=== PATIENT | male | born 1945 | race Hispanic/Latino ===

== ENCOUNTER 2016-10-27 19:38 | Inpatient (IN) | payer MEDICARE, BC ==
[2016-10-27 19:39] VITALS: PULSE 76
[2016-10-27] MEDS ORDERED: Sodium Chloride 0.9% 1,000 ML IV STA (20:18)
--- NOTE | 2016-10-27 20:19 | ED PDOC ---
Arrival/HPI - General Chief Complaint: Fever Time Seen by Provider: 10/27/16 20:07 - History of Present Illness Narrative History of Present Illness (Text): 10/27/16 20:16 71 yo male hx of kidney stones, htn, dm, presents with weakness, and increased confusion .as per son at bedside, noted symptoms x 3 days. pt reports was "on antibiotics for infection". pt states mild cough, no abdomianl pain, n/v/d, urinary changes, fernandez. pt oriented x 3 answering questions appropriately at bedside 10/27/16 20:17 10/27/16 20:33 Past Medical History - Provider Review Nursing Documentation Reviewed: Yes - Tetanus Immunization Tetanus Immunization: Unknown - Cardiac Hx Hypertension: Yes - Pulmonary Hx Respiratory Disorders: No Hx Asthma: No Hx Bronchitis: No Hx Chronic Obstructive Pulmonary Disease (COPD): No Hx Emphysema: No Hx Pneumonia: No Hx Respiratory Aspiration: No Hx Respiratory Tract Infection: No Hx Sleep Apnea: No Hx Tuberculosis: No Other/Comment: INTUBATION - Neurological Hx Neurological Disorder: Yes (Acute Altered Mental Status) Other/Comment: AMS - HEENT Hx HEENT Disorder: No - Renal Hx Renal Disorder: No - Endocrine/Metabolic Hx Diabetes Mellitus Type 2: Yes - Hematological/Oncological Hx Blood Disorders: No - Integumentary Hx Dermatological Disorder: No - Musculoskeletal/Rheumatological Hx Falls: Yes - Gastrointestinal Hx Gastrointestinal Disorders: No - Genitourinary/Gynecological Hx Genitourinary Disorders: Yes (URINARY RETENTION,) Hx Reproductive Disorders: No - Psychiatric Hx Anxiety: Yes Hx Substance Use: No - Past Surgical History Past Surgical History: Unable to Obtain - Surgical History Hx Cardiac Catheterization: No Hx Coronary Stent: No Other/Comment: I and D of abscesses - Anesthesia Hx Anesthesia: Yes - Suicidal Assessment Feels Threatened In Home Enviroment: No Family/Social History - Physician Review Nursing Documentation Reviewed: Yes Family/Social History: Unknown Family HX Smoking Status: Current Some Days Smoker Hx Alcohol Use: No Hx Substance Use: No Hx Substance Use Treatment: No Allergies/Home Meds Allergies/Adverse Reactions: Allergies Penicillins Allergy (Verified 10/27/16 19:43) RASH Home Medications: Home Meds Medication Instructions Recorded Confirmed Metformin Hydrochloride [Metformin] 500 mg PO BID 04/09/13 10/27/16 Amlodipine Besylate [Norvasc] 10 mg PO DAILY 06/29/13 10/27/16 Glimepiride [Glimepiride] 4 mg PO AC 06/29/13 10/27/16 Review of Systems - Review of Systems Constitutional: Normal Eyes: Normal ENT: Normal Respiratory: Normal Cardiovascular: Normal Gastrointestinal: Normal Genitourinary Male: Normal Musculoskeletal: Normal Skin: Normal Neurological: Normal Endocrine: Normal Hemo/Lymphatic: Normal Psychiatric: Normal Physical Exam Vital Signs Temp Pulse Resp BP Pulse Ox 10/27/16 20:26 102.1 F H 10/27/16 19:45 99.4 F 112 H 20 113/55 L 93 L Temperature: Afebrile Blood Pressure: Normal Pulse: Tachycardic Respiratory Rate: Normal Appearance: Positive for: Well-Appearing, Non-Toxic, Comfortable Pain Distress: None Mental Status: Positive for: Alert and Oriented X 3 Finger Stick Blood Glucose: 291 - Systems Exam Head: Present: Atraumatic, Normocephalic Pupils: Present: PERRL Extroacular Muscles: Present: EOMI Conjunctiva: Present: Normal Mouth: Present: Moist Mucous Membranes Neck: Present: Normal Range of Motion Respiratory/Chest: Present: Clear to Auscultation, Good Air Exchange. No: Respiratory Distress, Accessory Muscle Use Cardiovascular: Present: Regular Rate and Rhythm, Normal S1, S2. No: Murmurs Abdomen: Present: Distention (mild), Normal Bowel Sounds, Other. No: Tenderness , Peritoneal Signs Back: Present: Normal Inspection Upper Extremity: Present: Normal Inspection. No: Cyanosis, Edema Lower Extremity: Present: Normal Inspection. No: Edema Neurological: Present: GCS=15, CN II-XII Intact, Speech Normal, Motor Func Grossly Intact, Normal Sensory Function, Normal Cerebellar Funct Skin: Present: Warm, Dry, Normal Color. No: Rashes Psychiatric: Present: Alert, Oriented x 3, Normal Insight, Normal Concentration Medical Decision Making ED Course and Treatment: 10/27/16 20:19 suspect sepsis, r/o intracranial etiology- labs imaging pending. ekg nsr [address] t wave changes normal intervals. 10/27/16 20:31 cxr right sided infiltrate as read by me 10/27/16 20:49 code sepsis activated as la 2.2. pt hemodynciamlly stable, does not need 30 cc/ kg bolus 10/27/16 23:01 IMPRESSION: Unremarkable head/brain CT. 10/27/16 23:08 IMPRESSION: Findings consistent with extensive lobar pneumonia of the right middle lobe with mild involvement of the adjacent segments as well. Multiple renal cysts combination of both simple and complex. These are difficult to delineate without contrast. Multiple nonobstructing stones, no hydronephrosis. Fat-containing periumbilical hernia as described. Constipation without signs of bowel obstruction. - Lab Interpretations Lab Results: 10/27/16 20:12 10/27/16 20:12 Lab Results 10/27/16 22:10: Influenza Typ A,B (EIA) Negative for flu a/b 10/27/16 21:43: Urine Color Light red, Urine Appearance Slight-cloudy, Urine pH 5.5, Ur Specific [place] >= 1.030, Urine Protein 100 H, Urine Glucose (UA) Negative, Urine Ketones 15 H, Urine Blood Large H, Urine Nitrate Negative, Urine Bilirubin Small H, Urine Urobilinogen 1.0 H, Ur Leukocyte Esterase Moderate H, Urine RBC Tntc, Urine WBC 25 - 30, Ur Epithelial Cells 4 - 5, Amorphous Sediment Moderate, Urine Bacteria Many, Urine Other Uyeast 10/27/16 20:12: Sodium 136, Chloride 102, Potassium 4.4, Carbon Dioxide 25, Anion Gap 13, BUN 26 H, Creatinine 1.5 H, Est GFR ( Amer) 56, Est GFR ( Non-Af Amer) 46, Random Glucose 300 H, Calcium 8.9, Magnesium 1.7, Total Bilirubin 1.5 H, AST 25, ALT 26, Alkaline Phosphatase 98, Lactate Dehydrogenase 411, Total Creatine Kinase 207, Troponin I < 0.01 D, Total Protein 6.6, Albumin 3.7, Globulin 3.0, Albumin/Globulin Ratio 1.2, Lipase 26 10/27/16 20:12: PT 13.2 H, INR 1.22 H, APTT 34.8 H 10/27/16 20:12: WBC 32.4 H*, RBC 4.13, Hgb 13.2 L, Hct 37.9 L, MCV 91.8, MCH 32.0, MCHC 34.8, RDW 13.7, Plt Count 135, MPV 13.2 H, Neutrophils % (Manual) 86 H, Band Neutrophils % 5 H, Lymphocytes % (Manual) 5 L, Monocytes % (Manual) 4, Platelet Evaluation Normal, Anisocytosis (manual) Slight 10/27/16 20:12: pO2 40, VBG pH 7.35, VBG pCO2 44.0, VBG HCO3 24.3, VBG Total CO2 25.7, VBG O2 Sat (Calc) 79.1 H, VBG Base Excess -1.5 L, VBG Potassium 4.4, Sodium 136.0, Chloride 102.0, Glucose 324 H, Lactate 2.2 H, FiO2 21.0, Venous Blood Potassium 4.4 - RAD Interpretation Radiology Orders: 10/27/16 20:11 CHEST PORTABLE [RAD] Stat 10/27/16 20:16 ABD & PELVIS W/O PO OR IV CONT [CT] Stat 10/27/16 20:17 HEAD W/O CONTRAST [CT] Stat 10/27/16 22:45 CHEST W/O CONTRAST [CT] Stat - Medication Orders Current Medication Orders: Acetaminophen (Tylenol 325mg Tab) 650 mg PO Q6H PRN PRN Reason: Fever >100.4 F Albuterol/Ipratropium (Duoneb 3 Mg/0.5 Mg (3 Ml) Ud) 3 ml IH Q2H PRN PRN Reason: Shortness of Breath Albuterol/Ipratropium (Duoneb 3 Mg/0.5 Mg (3 Ml) Ud) 3 ml IH [id number] [facility] Amlodipine Besylate (Norvasc) 10 mg PO DAILY [facility] Aspirin (Aspirin Chewable) 81 mg PO DAILY [facility] Doxycycline Hyclate 100 mg/ (Sodium Chloride) 100 mls @ 100 mls/hr IVPB Q12 [facility] PRN Reason: Protocol Sodium Chloride (Sodium Chloride 0.45%) 1,000 mls @ 100 mls/hr IV .Q10H [facility] Aztreonam (Azactam 1 Gm) 100 mls @ 100 mls/hr IVPB Q8 [facility] PRN Reason: Protocol Stop: 10/28/16 06:59 Insulin Human Regular (Humulin R High) 0 units SC ACHS [facility] PRN Reason: Protocol Ondansetron HCl (Zofran Inj) 4 mg IVP Q6H PRN PRN Reason: Nausea/Vomiting Oseltamivir Phosphate (Tamiflu Cap) 75 mg PO BID [facility] PRN Reason: Protocol Stop: 11/01/16 22:33 Pantoprazole Sodium (Protonix Ec Tab) 40 mg PO 0630 [facility] Discontinued Medications Acetaminophen (Tylenol 325mg Tab) 975 mg PO STAT STA Stop: 10/27/16 20:30 Last Admin: 10/27/16 20:48 Dose: 975 mg Sodium Chloride (Sodium Chloride 0.9%) 1,000 mls @ 999 mls/hr IV .Q1H1M STA Stop: 10/27/16 21:18 Last Admin: 10/27/16 20:56 Dose: 999 mls/hr Levofloxacin/Dextrose (Levaquin 750mg) 750 mg IVPB STAT STA Stop: 10/27/16 20:24 Last Admin: 10/27/16 20:56 Dose: 750 mg Disposition/Present on Arrival - Present on Arrival Any Indicators Present on Arrival: No History of DVT/PE: No History of Uncontrolled Diabetes: No Urinary Catheter: No History of Decub. Ulcer: No History Surgical Site Infection Following: None - Disposition Have Diagnosis and Disposition been Completed?: Yes Diagnosis: Pneumonia, UTI (urinary tract infection), Sepsis Disposition: HOSPITALIZED Disposition Time: 11:00 Patient Problems: Current Active Problems Problem Status Onset Pneumonia Acute Sepsis Acute UTI (urinary tract infection) Acute Condition: FAIR Discharge Instructions (ExitCare): Sepsis (ED) Referrals: Wes Carmona MD [Primary Care Provider] - Follow up with primary
[2016-10-27] MEDS ORDERED: levoFLOXacin 750 mg in D5W 150 ML BAG IVPB STA (20:23)
[2016-10-27 20:40] LABS: VENOUS BLOOD GAS BASE EXCESS -1.5 mmol/L (0.0-2.0); VENOUS BLOOD PH 7.35 (7.32-7.43)
[2016-10-27 20:49] LABS: HEMATOCRIT 37.9 % (42.0-52.0); MEAN CELL VOLUME 91.8 fL (80.0-105.0); MEAN CORPUSCULAR HGB CONC 34.8 g/dl (31.0-37.0); MEAN PLATELET VOLUME 13.2 fl (7.0-11.0); PLATELET COUNT 135 10^3/uL (120.0-450.0); RED CELL DISTRIBUTION WIDTH 13.7 % (11.5-14.5)
[2016-10-27 20:53] LABS: ALB/GLOB RATIO 1.2 (1.1-1.8); ALKALINE PHOSPHATASE 98 U/L (38-133); ALT/SGPT 26 U/L (7-56); AST/SGOT 25 U/L (15-59); BILIRUBIN,TOTAL 1.5 mg/dL (0.2-1.3); BLOOD UREA NITROGEN 26 mg/dL (7-21); CALCIUM 8.9 mg/dL (8.4-10.5); CARBON DIOXIDE 25 mmol/L (21-33); CHLORIDE 102 mmol/L (98-107); GFR AFRICAN-AMERICAN 56; LIPASE 26 U/L (23-300); MAGNESIUM 1.7 mg/dL (1.7-2.2); POTASSIUM 4.4 mmol/L (3.6-5.0); SODIUM 136 mmol/L (132-148); TOTAL PROTEIN 6.6 g/dL (5.8-8.3)
[2016-10-27 20:56] LABS: GLUCOSE,RANDOM 300 mg/dL (70-110)
[2016-10-27 20:57] LABS: INR 1.22 (0.93-1.08); PARTIAL THROMBOPLASTIN TIME 34.8 Seconds (23.7-30.8)
[2016-10-27 21:03] LABS: ADD MANUAL DIFF? YES; WHITE BLOOD COUNT 32.4 10^3/ul (4.5-11.0)
[2016-10-27 21:06] LABS: TROPONIN I < 0.01 ng/mL
[2016-10-27 21:26] LABS: BAND 5 % (0-2); NEUTROPHIL 86 % (50.0-70.0); PLATELET ESTIMATE NORMAL (NORMAL)
[2016-10-27 21:27] LABS: ANISOCYTOSIS SLIGHT
[2016-10-27 22:10] LABS: PH,URINE 5.5 (4.7-8.0); URINE BILIRUBIN SMALL (NEGATIVE); URINE BLOOD LARGE (NEGATIVE); URINE GLUCOSE (UA) NEGATIVE (NEGATIVE); URINE KETONE 15 mg/dL (NEGATIVE); URINE LEUKOCYTE ESTERASE MODERATE Leu/uL (NEGATIVE); URINE PROTEIN 100 mg/dL (<30 mg/dL)
[2016-10-27 22:19] LABS: URINE APPEARANCE SLIGHT-CLOUDY (CLEAR); URINE COLOR LIGHT RED (YELLOW)
[2016-10-27 22:25] LABS: URINE BACTERIA MANY (NEG); URINE RBC TNTC /hpf (0-2); URINE WBC 25 - 30 /hpf (0-6)
[2016-10-27 22:26] LABS: URINE AMORPHOUS SEDIMENT MODERATE
[2016-10-27] MEDS ORDERED: Albuterol-Ipratrop 3 mg / 0.5 (3 ml) UD IH PRN (22:31)
[2016-10-27] MEDS: Sodium Chloride 0.45% 1,000 ML IV SCH (23:27)
[2016-10-27 23:52] LABS: VENOUS BLOOD GAS BASE EXCESS -1.7 mmol/L (0.0-2.0); VENOUS BLOOD PH 7.39 (7.32-7.43)
[2016-10-28] MEDS: Aztreonam 1 Gm in NS 100mL 100 ML IVPB SCH ×5 (00:13→23:40)
[2016-10-28] MEDS: Albuterol-Ipratrop 3 mg / 0.5 (3 ml) UD IH SCH ×4 (02:54→20:30)
[2016-10-28 07:02] LABS: MEAN CELL VOLUME 91.1 fL (80.0-105.0); MEAN CORPUSCULAR HEMOGLOBIN 31.3 pg (25.0-35.0); MEAN CORPUSCULAR HGB CONC 34.3 g/dl (31.0-37.0); MEAN PLATELET VOLUME 12.6 fl (7.0-11.0); PLATELET COUNT 110 10^3/uL (120.0-450.0); RED CELL DISTRIBUTION WIDTH 13.6 % (11.5-14.5)
[2016-10-28 07:13] LABS: ADD MANUAL DIFF? YES
[2016-10-28] MEDS: Pantoprazole 40 mg EC Tab PO SCH (07:22)
[2016-10-28 07:25] LABS: FREE T4 1.51 ng/dL (0.78-2.19)
[2016-10-28 07:31] LABS: ALB/GLOB RATIO 1.1 (1.1-1.8); ALKALINE PHOSPHATASE 67 U/L (38-133); ALT/SGPT 45 U/L (7-56); AST/SGOT 50 U/L (15-59); BILIRUBIN,TOTAL 1.3 mg/dL (0.2-1.3); BLOOD UREA NITROGEN 31 mg/dL (7-21); CALCIUM 8.2 mg/dL (8.4-10.5); CARBON DIOXIDE 23 mmol/L (21-33); CHLORIDE 107 mmol/L (98-107); CHOLESTEROL 73 mg/dL (130-200); GFR AFRICAN-AMERICAN 40; GLUCOSE,RANDOM 206 mg/dL (70-110); MAGNESIUM 1.8 mg/dL (1.7-2.2); PHOSPHOROUS 2.5 mg/dL (2.5-4.5); POTASSIUM 4.2 mmol/L (3.6-5.0); SODIUM 136 mmol/L (132-148); TOTAL PROTEIN 5.8 g/dL (5.8-8.3)
[2016-10-28 07:38] LABS: THYROID STIMULATING HORMONE 1.19 mIU/mL (0.46-4.68)
[2016-10-28 08:12] LABS: BAND 4 % (0-2); EOSINOPHIL 1 % (0.0-3.0); NEUTROPHIL 87 % (50.0-70.0); PLATELET ESTIMATE LOW (NORMAL)
--- NOTE | 2016-10-28 08:23 | CT ---
PROCEDURE: CT HEAD WITHOUT CONTRAST. HISTORY: ams COMPARISON: None available. TECHNIQUE: Axial computed tomography images were obtained through the head/brain without intravenous contrast. Radiation dose: Total exam DLP = 774 mGy-cm. This CT exam was performed using one or more of the following dose reduction techniques: Automated exposure control, adjustment of the mA and/or kV according to patient size, and/or use of iterative reconstruction technique. FINDINGS: HEMORRHAGE: No intracranial hemorrhage. BRAIN: No mass effect or edema. No atrophy or chronic microvascular ischemic changes. VENTRICLES: Unremarkable. No hydrocephalus. CALVARIUM: Unremarkable. PARANASAL SINUSES: Unremarkable as visualized. No significant inflammatory changes. MASTOID AIR CELLS: Unremarkable as visualized. No inflammatory changes. OTHER FINDINGS: None. IMPRESSION: Normal CT of the Head.
[2016-10-28] MEDS ORDERED: Insulin Regular 1 UNITS/0.01 ML ML ONE ×3 (08:33→16:21)
[2016-10-28] MEDS: Insulin Reg-HIGH-Coverage SC SCH ×3 (08:34→19:23)
--- NOTE | 2016-10-28 08:51 | CT ---
PROCEDURE: CT Abdomen and Pelvis without intravenous contrast HISTORY: abd pain h/o of renal stones COMPARISON: 10/24/2014 TECHNIQUE: Technique. Contrast Dose: Radiation dose: Total exam DLP = 1309 mGy-cm. This CT exam was performed using one or more of the following dose reduction techniques: Automated exposure control, adjustment of the mA and/or kV according to patient size, and/or use of iterative reconstruction technique. FINDINGS: LOWER THORAX: Large right lower lung zone pneumonia LIVER: . Unremarkable. No gross lesion or ductal dilatation. GALLBLADDER AND BILE DUCTS: Unremarkable. PANCREAS: Unremarkable. No gross lesion or ductal dilatation. SPLEEN: Unremarkable. ADRENALS: Unremarkable. No mass. KIDNEYS AND URETERS: Multiple bilateral renal cysts mostly simple though some cysts of the right kidney are hemorrhagic and show complex features. Assessment is limited by lack of intravenous contrast. Small nonobstructive renal calculi noted bilaterally. No hydronephrosis. VASCULATURE: Unremarkable. No aortic aneurysm. BOWEL: Abundant stool throughout the colon obstruction. APPENDIX: Unremarkable. Normal appendix. PERITONEUM: Unremarkable. No free fluid. No free air. LYMPH NODES: Unremarkable. No enlarged lymph nodes. BLADDER: Gonzalez catheter in bladder. REPRODUCTIVE: Unremarkable. BONES: No acute fracture. OTHER FINDINGS: Periumbilical hernia containing omental fat.. IMPRESSION: Large right lower lobe infiltrate. Multiple bilateral simple and complex renal cysts. Bilateral renal calculi.
--- NOTE | 2016-10-28 10:21 | RAD ---
HISTORY: fever COMPARISON: 06/25/2013 FINDINGS: LUNGS: There is an infiltrate at the right lung base PLEURA: No significant pleural effusion identified, no pneumothorax apparent. CARDIOVASCULAR: Normal. OSSEOUS STRUCTURES: No significant abnormalities. VISUALIZED UPPER ABDOMEN: Normal. OTHER FINDINGS: None. IMPRESSION: Right lower lobe infiltrate
[2016-10-28] MEDS: Sodium Chloride 0.45% 1,000 ML IV SCH ×2 (10:32→19:28)
--- NOTE | 2016-10-28 11:00 | CARD ---
APPROVED REPORT EKG Measurement Heart [id number] <Conclusion> Normal sinus rhythm IMI, age unknown NSSTW changes
--- NOTE | 2016-10-28 11:20 | CP.PCM.CON ---
History of Present Illness - History of Present Illness History of Present Illness: 71 year old male with PMH of nephrolithiasis, HTN, DM, history of skin infection , history of urinary retention was brought in to [facility] because the patient was having increased cough and as per ER report the patient was somewhat confused on initial presentation. Soon after being seen in the ED, he became more alert and was apparently oriented. Currently the patient is awake and alert. He states that he has been having cough for the past week, and was recently given PO antibiotics by his PMD (does not recall which antibiotic). He denies having fever or chills, no nausea or vomiting, no chest pain, no abdominal pain, no diarrhea, no dysuria. He also denies recent travel outside of [place] in the past 3 months. In the ED, he underwent CT scan of the abdomen and pelvis and was found to have an infiltrate on the right lower lobe. Infectious diseases consult is requested to further evaluate and manage. Review of Systems - Review of Systems All systems: reviewed and no additional remarkable complaints except (as per HPI ) Past Patient History - Tetanus Immunizations Tetanus Immunization: Unknown - Past Social History Smoking Status: Current Some Days Smoker - CARDIAC Hx Hypertension: Yes - PULMONARY Hx Respiratory Disorders: No Hx Asthma: No Hx Bronchitis: No Hx Chronic Obstructive Pulmonary Disease (COPD): No Hx Emphysema: No Hx Pneumonia: No Hx Respiratory Aspiration: No Hx Respiratory Tract Infection: No Hx Sleep Apnea: No Hx Tuberculosis: No Other/Comment: INTUBATION - NEUROLOGICAL Hx Neurological Disorder: Yes (Acute Altered Mental Status) Other/Comment: AMS - HEENT Hx HEENT Problems: No - RENAL Hx Chronic Kidney Disease: No - ENDOCRINE/METABOLIC Hx Diabetes Mellitus Type 2: Yes - HEMATOLOGICAL/ONCOLOGICAL Hx Blood Disorders: No - INTEGUMENTARY Hx Dermatological Problems: No - MUSCULOSKELETAL/RHEUMATOLOGICAL Hx Falls: Yes - GASTROINTESTINAL Hx Gastrointestinal Disorders: No - GENITOURINARY/GYNECOLOGICAL Hx Genitourinary Disorders: Yes (URINARY RETENTION,) Hx Reproductive Disorders: No - PSYCHIATRIC Hx Anxiety: Yes Hx Substance Use: No - SURGICAL HISTORY Hx Cardiac Catheterization: No Hx Coronary Stent: No Other/Comment: I and D of abscesses - ANESTHESIA Hx Anesthesia: Yes Meds Allergies/Adverse Reactions: Allergies Allergy/AdvReac Type Severity Reaction Status Date / Time Penicillins Allergy RASH Verified 10/27/16 19:43 - Medications Medications: Current Medications Acetaminophen (Tylenol 325mg Tab) 650 mg PO Q6H PRN PRN Reason: Fever >100.4 F Albuterol/Ipratropium (Duoneb 3 Mg/0.5 Mg (3 Ml) Ud) 3 ml IH Q2H PRN PRN Reason: Shortness of Breath Albuterol/Ipratropium (Duoneb 3 Mg/0.5 Mg (3 Ml) Ud) 3 ml IH [id number] [facility] Last Admin: 10/28/16 02:54 Dose: 3 ml Amlodipine Besylate (Norvasc) 10 mg PO DAILY [facility] Aspirin (Aspirin Chewable) 81 mg PO DAILY [facility] Doxycycline Hyclate 100 mg/ (Sodium Chloride) 100 mls @ 100 mls/hr IVPB Q12 [facility] PRN Reason: Protocol Sodium Chloride (Sodium Chloride 0.45%) 1,000 mls @ 100 mls/hr IV .Q10H [facility] Last Admin: 10/27/16 23:27 Dose: 100 mls/hr Aztreonam (Azactam 1 Gm) 100 mls @ 100 mls/hr IVPB Q8 [facility] PRN Reason: Protocol Stop: 10/28/16 06:59 Last Admin: 10/28/16 00:13 Dose: 100 mls/hr Insulin Human Regular (Humulin R High) 0 units SC ACHS [facility] PRN Reason: Protocol Ondansetron HCl (Zofran Inj) 4 mg IVP Q6H PRN PRN Reason: Nausea/Vomiting Oseltamivir Phosphate (Tamiflu Cap) 75 mg PO BID [facility] PRN Reason: Protocol Stop: 11/01/16 22:33 Pantoprazole Sodium (Protonix Ec Tab) 40 mg PO 0630 [facility] Physical Exam - Constitutional Appears: Non-toxic, No Acute Distress - Head Exam Head Exam: NORMAL INSPECTION - ENT Exam ENT Exam: Mucous Membranes Moist - Neck Exam Neck exam: Negative for: Lymphadenopathy, Meningismus - Respiratory Exam Respiratory Exam: Decreased Breath Sounds (at the bases with crackles noted) - Cardiovascular Exam Cardiovascular Exam: +S1, +S2 - GI/Abdominal Exam GI & Abdominal Exam: Soft. absent: Tenderness Results - Vital Signs Recent Vital Signs: Last Vital Signs Temp 98.1 F 10/28/16 05:28 Pulse 83 10/28/16 05:28 Resp 16 10/28/16 05:28 BP 133/79 10/28/16 05:28 Pulse Ox 97 10/28/16 02:13 - Labs Result Diagrams: 10/28/16 06:40 10/28/16 06:40 Labs: Laboratory Results - last 24 hr 10/27/16 10/28/16 23:23 00:20 pO2 243 H VBG pH 7.39 VBG pCO2 38.0 L VBG HCO3 23.0 VBG Total CO2 24.2 VBG O2 Sat (Calc) 99.7 H VBG Base Excess -1.7 L VBG Potassium 3.8 Sodium 136.0 Chloride 109.0 H Glucose 294 H Lactate 1.5 FiO2 21.0 Venous Blood Potassium 3.8 Urine Opiates Screen Positive H Urine Methadone Screen Negative Ur Barbiturates Screen Negative Ur Phencyclidine Scrn Negative Ur Amphetamines Screen Negative U Benzodiazepines Scrn Negative U Oth Cocaine Metabols Negative U Cannabinoids Screen Positive H Assessment & Plan - Assessment and Plan (Free Text) Plan: Assessment Consider severe sepsis with acute renal failure due to right lower lobe pneumonia, healthcare-associated since he has been recently on antibiotics, with possible gram positive cocci and/or gram negative bacilli or atypical organisms nephrolithiasis HTN DM history of skin infection history of urinary retention Plan Started the patient on Zyvox, Azactam and Doxycycline pending blood, sputum cx, PCT; reviewed CT scan of the abdomen and pelvis which shows the right lower lobe infiltration with air bronchograms will monitor clinical response
--- NOTE | 2016-10-28 12:44 | HP ---
The patient is a 71-year-old, known to me from office practice. According to , he has been havin g some generalized weakness with malaise going on for the last few days, but got worse in the last 3 days. He has been having cough and congestion. His came to my office the day before yesterday to get some cough medication. During exam, he was given some promethazine with codeine. She d id not report to me that he had a fever at home or not. However, because of his cough, congestion, corrine gaitan was found to be somewhat confused, so family brought him to Emergency Room because he had similar e pisode in the past where he had metabolic encephalopathy and he was in ICU for a couple of days. He was admitted in 2013 and at that point, he had influenza positive and he was septic and had respirato ry failure. Denies any nausea, vomiting. No recent travel abroad. PAST MEDICAL HISTORY: Otherwise is significant for: 1. Hypertension. 2. Non-insulin dependent diabetes. 3. Mild renal insufficiency. 4. History of chronic recurrent urinary tract infection because he had urethral reconstruction done [place]. 5. Hyperlipidemia. ALLERGIES: HE IS ALLERGIC TO PENICILLIN. MEDICATIONS AT HOME: He is on Janumet 50/500 and glimepiride. He is also on simvastatin and Norvasc 10 mg daily. He takes Percocet as needed once in a while for chronic back pain from pain management . SOCIAL HISTORY: He is active smoker for many, many years ago. Does not smoke. FAMILY HISTORY: Significant, his daughter has Himanshu's disease and awaiting liver transplant. REVIEW OF SYSTEMS: Significant for cough, congestion, malaise, generalized weakness. PHYSICAL EXAMINATION: GENERAL: Awake and alert, able to communicate. VITAL SIGNS: He has temperature 102.1 by rectal, pulse 112, respirations 20, blood pressure 113/55. LUNGS: Bilateral few expiratory rhonchi. HEART: S1, S2 audible. Tachycardic. ABDOMEN: Soft, nontender, no rebound, no guarding. NEUROLOGIC: He is awake and alert, able to communicate. LABORATORY EXAMINATION: WBC 32.4, hemoglobin 13.2, hematocrit 37.9, platelet 135. PT 13.2, INR 1.22 . ABG: pH is 7.46, pO2 130, pCO2 40, and pulse ox 98%. Chemistry: Sodium 136, potassium 4.4, chlo ride 102, CO2 25, BUN 26, creatinine 1.5, blood sugar of 300. His total bili 1.5. Urine shows moder ate leukocyte and large blood. ASSESSMENT: 1. Sepsis with leukocytosis, rule out underlying pneumonia versus viral syndrome. 2. Active smoker. 3. Chronic obstructive pulmonary disease. 4. Non-insulin dependent diabetes. 5. Hypertension. 6. Hyperlipidemia. 7. Chronic recurrent urinary tract infection. PLAN: Blood culture, urine cultures are sent. We will empirically cover him with broad spectrum ant ibiotic and antiviral. Start him on nebulizer treatment. Resume his medication. Monitor his blood sugar and ID consult by Dr. Harkins will be requested. Diallo West MD cc: [phone] TT: 10/28/2016 09:05:57 en
--- NOTE | 2016-10-28 13:29 | PN ---
DATE: 10/28/2016 Seen and examined, the patient was admitted because of increasing cough and congestion, seems to be d oing a little better. PHYSICAL EXAMINATION: VITAL SIGNS: He is afebrile, pulse 74, respirations 18, blood pressure 143/73. LUNGS: Bilateral good airflow, few expiratory rhonchi. HEART: S1, S2 audible. ABDOMEN: Soft, nontender. No rebound, no guarding. NEUROLOGIC: The patient is awake and alert, communicative. LABORATORY EXAMINATION: WBC is 25, hemoglobin 12, hematocrit 35, platelets of 110. Chemistry: [place] um 136, potassium 4.2, chloride 107, CO2 of 23, BUN 31, creatinine 2.0, blood sugar 212. LFTs are wi thin normal limits. Urine tox is positive for opiates and marijuana. Flu test is negative. Culture s are pending. ASSESSMENT: 1. Community-acquired pneumonia. 2. Leukocytosis, improving. 3. Polysubstance abuse. 4. Right lower lobe pneumonia. 5. Non-insulin dependent diabetes. 6. Hypertension. 7. Hyperlipidemia. PLAN: Currently, the patient is on IV fluid. We will continue him on Azactam, doxycycline. We can discontinue Tamiflu since his influenza test is negative. Continue him on Zyvox, and follow up CBC and CMP in a.m. Diallo West MD cc: [phone] TT: 10/28/2016 13:28:30 Confirmation # [id number] Dictation # [id number] sera
[2016-10-28] MEDS: Linezolid 600 mg in D5W 300 ml 600 MG/300 ML BAG IVPB SCH (18:07)
[2016-10-29] MEDS: Aztreonam 1 Gm in NS 100mL 100 ML IVPB SCH ×4 (00:52→21:02)
[2016-10-29] MEDS: Albuterol-Ipratrop 3 mg / 0.5 (3 ml) UD IH SCH ×3 (03:00→19:27)
[2016-10-29] MEDS: Sodium Chloride 0.45% 1,000 ML IV SCH ×2 (03:35→09:59)
[2016-10-29 04:45] VITALS: BMI 28.7
[2016-10-29] MEDS: Pantoprazole 40 mg EC Tab PO SCH (06:13)
[2016-10-29 06:25] LABS: ADD MANUAL DIFF? NO
[2016-10-29 06:31] LABS: BASO # 0.04 K/mm3 (0.0-2.0); BASO % 0.2 % (0.0-3.0); EOS # 0.2 (0.0-0.7); GRAN # 15.66 (1.4-6.5); GRAN % 83.6 % (50.0-68.0); HEMATOCRIT 33.8 % (42.0-52.0); LYMPH # 1.4 (1.2-3.4); LYMPH % 7.6 % (22.0-35.0); MEAN CELL VOLUME 89.7 fL (80.0-105.0); MEAN CORPUSCULAR HGB CONC 34.6 g/dl (31.0-37.0); MEAN PLATELET VOLUME 13.1 fl (7.0-11.0); MONO # 1.4 (0.1-0.6); MONO % 7.6 % (1.0-6.0); PLATELET COUNT 130 10^3/uL (120.0-450.0); RED CELL DISTRIBUTION WIDTH 13.6 % (11.5-14.5); WHITE BLOOD COUNT 18.8 10^3/ul (4.5-11.0)
[2016-10-29 06:57] LABS: BILIRUBIN,TOTAL 0.9 mg/dL (0.2-1.3); CALCIUM 7.6 mg/dL (8.4-10.5); POTASSIUM 3.8 mmol/L (3.6-5.0); TOTAL PROTEIN 5.3 g/dL (5.8-8.3)
[2016-10-29] MEDS: Insulin Reg-HIGH-Coverage SC SCH ×4 (08:17→21:12)
[2016-10-29] MEDS: Linezolid 600 mg in D5W 300 ml 600 MG/300 ML BAG IVPB SCH ×2 (11:41→21:10)
--- NOTE | 2016-10-29 12:01 | CP.PCM.PN ---
Subjective - Date & Time of Evaluation Date of Evaluation: 10/29/16 Time of Evaluation: 10:00 - Subjective Subjective: Patient is feeling a little better today, no fevers overnight, not in distress, still with cough. Objective - Vital Signs/Intake and Output Vital Signs (last 24 hours): Temp Pulse Resp BP Pulse Ox 99.5 F 75 20 119/51 L 96 10/29/16 06:00 10/29/16 06:00 10/29/16 06:00 10/29/16 06:00 10/29/16 06:00 - Medications Medications: Current Medications Acetaminophen (Tylenol 325mg Tab) 650 mg PO Q6H PRN PRN Reason: Fever >100.4 F Albuterol/Ipratropium (Duoneb 3 Mg/0.5 Mg (3 Ml) Ud) 3 ml IH Q2H PRN PRN Reason: Shortness of Breath Last Admin: 10/28/16 14:33 Dose: 3 ml Albuterol/Ipratropium (Duoneb 3 Mg/0.5 Mg (3 Ml) Ud) 3 ml IH [id number] PETROS Last Admin: 10/29/16 03:00 Dose: 3 ml Amlodipine Besylate (Norvasc) 10 mg PO DAILY PETROS Last Admin: 10/28/16 10:41 Dose: 10 mg Aspirin (Aspirin Chewable) 81 mg PO DAILY PETROS Last Admin: 10/28/16 10:41 Dose: 81 mg Doxycycline Hyclate 100 mg/ (Sodium Chloride) 100 mls @ 100 mls/hr IVPB Q12 PETROS PRN Reason: Protocol Last Admin: 10/28/16 10:40 Dose: 100 mls/hr Sodium Chloride (Sodium Chloride 0.45%) 1,000 mls @ 100 mls/hr IV .Q10H PETROS Last Admin: 10/29/16 03:35 Dose: 100 mls/hr Aztreonam (Azactam 1 Gm) 100 mls @ 100 mls/hr IVPB Q8 PETROS PRN Reason: Protocol Stop: 11/04/16 10:01 Last Admin: 10/29/16 06:16 Dose: 100 mls/hr Linezolid (Zyvox 600mg/300ml D5w) 600 mg in 300 mls @ 200 mls/hr IVPB Q12 PETROS PRN Reason: Protocol Stop: 11/04/16 10:01 Last Admin: 10/28/16 18:07 Dose: 200 mls/hr Insulin Human Regular (Humulin R High) 0 units SC ACHS PETROS PRN Reason: Protocol Last Admin: 10/28/16 19:23 Dose: Not Given Ondansetron HCl (Zofran Inj) 4 mg IVP Q6H PRN PRN Reason: Nausea/Vomiting Pantoprazole Sodium (Protonix Ec Tab) 40 mg PO 0630 COUNT INCLUDES THE [facility] Last Admin: 10/29/16 06:13 Dose: 40 mg - Labs Labs: 10/29/16 05:30 10/29/16 05:30 PT 13.2 Seconds (9.9-11.8) H 10/27/16 20:12 INR 1.22 (0.93-1.08) H 10/27/16 20:12 APTT 34.8 Seconds (23.7-30.8) H 10/27/16 20:12 - Constitutional Appears: Non-toxic, No Acute Distress - Head Exam Head Exam: NORMAL INSPECTION - ENT Exam ENT Exam: Mucous Membranes Moist - Neck Exam Neck Exam: absent: Lymphadenopathy, Meningismus - Respiratory Exam Respiratory Exam: Decreased Breath Sounds - Cardiovascular Exam Cardiovascular Exam: +S1, +S2 - GI/Abdominal Exam GI & Abdominal Exam: Soft. absent: Tenderness Assessment and Plan - Assessment and Plan (Free Text) Plan: Assessment Consider severe sepsis with acute renal failure due to right lower lobe pneumonia, healthcare-associated since he has been recently on antibiotics, with possible gram positive cocci and/or gram negative bacilli or atypical organisms nephrolithiasis HTN DM history of skin infection history of urinary retention Plan continue Zyvox, Azactam and Doxycycline day 2 pending final blood, sputum cx results; reviewed CT scan of the abdomen and pelvis which shows the right lower lobe infiltration with air bronchograms will continue to monitor clinical response
--- NOTE | 2016-10-29 13:20 | PN ---
DATE: 10/29/2016 SUBJECTIVE: The patient is a 71-year-old, seen and examined, lying in bed, comfortable, scanty cough . No nausea, vomiting, no diarrhea. PHYSICAL EXAMINATION: VITAL SIGNS: He is afebrile, pulse 73, respirations 20, blood pressure 119/71. LUNGS: Bilateral good airflow, few expiratory rhonchi at the bases, more so on the right base. HEART: S1, S2 audible. ABDOMEN: Soft, nontender, no rebound, no guarding. NEUROLOGIC: He is awake and alert, communicative. Moves all extremities. GENITOURINARY: Gonzalez cath eter draining clear urine, no hematuria. LABORATORY: WBC 18, hemoglobin 11.7, hematocrit 33.8, platelets 130. Chemistry: Sodium 138, potass ium 3.8, chloride 112, CO2 18, BUN 36, creatinine 2.8, blood sugar of 257. Urine, gram-negative rods . Blood cultures are negative. ASSESSMENT: 1. Community-acquired pneumonia. 2. Escherichia coli urinary tract infection. 3. PENICILLIN ALLERGY. 4. Non-insulin dependent diabetes. 5. Hypertension. PLAN: Currently, the patient is on IV fluid. We will continue on Azactam, doxycycline and Zyvox. T he patient wants to go home because he has a sick daughter who suffers from Himanshu disease at home. I explained to him it is not sure that he will be discharged tomorrow or not, but I will discontinue h is telemetry. We will discontinue his Gonzalez catheter, encourage out of bed to chair. We will reeval uate the patient in a.m. Discussed with Dr. Mcclellan about switching to p.o. antibiotic upon discharge for right choice of antibiotics. We will see how his vital signs and white count are tomorrow and th en we will decide upon disposition plan. Diallo West MD cc: [phone] TT: 10/29/2016 13:19:38 Confirmation # [id number] Dictation # [id number] vale
--- NOTE | 2016-10-29 13:57 | PCM.URO ---
Urology Progress Note - Objective Lab Results Last 24 Hours: Laboratory Results - last 24 hr 10/29/16 10/29/16 10/29/16 05:30 05:30 07:41 WBC 18.8 H D RBC 3.77 Hgb 11.7 L Hct 33.8 L MCV 89.7 MCH 31.0 MCHC 34.6 RDW 13.6 Plt Count 130 MPV 13.1 H Gran % 83.6 H Lymph % (Auto) 7.6 L [place] % (Auto) 7.6 H Eos % (Auto) 1.0 L Baso % (Auto) 0.2 Gran # 15.66 H Lymph # 1.4 [place] # 1.4 H Eos # 0.2 Baso # 0.04 Sodium 138 Potassium 3.8 Chloride 112 H Carbon Dioxide 18 L Anion Gap 12 BUN 36 H Creatinine 2.8 H Est GFR ( Amer) 27 Est GFR (Non-Af Amer) 23 POC Glucose (mg/dL) 196 H Random Glucose 159 H Calcium 7.6 L Total Bilirubin 0.9 AST 100 H ALT 109 H Alkaline Phosphatase 110 Total Protein 5.3 L Albumin 2.7 L Globulin 2.6 Albumin/Globulin Ratio 1.0 L 10/29/16 11:09 WBC RBC Hgb Hct MCV MCH MCHC RDW Plt Count MPV Gran % Lymph % (Auto) [place] % (Auto) Eos % (Auto) Baso % (Auto) Gran # Lymph # [place] # Eos # Baso # Sodium Potassium Chloride Carbon Dioxide Anion Gap BUN Creatinine Est GFR ( Amer) Est GFR (Non-Af Amer) POC Glucose (mg/dL) 257 H Random Glucose Calcium Total Bilirubin AST ALT Alkaline Phosphatase Total Protein Albumin Globulin Albumin/Globulin Ratio Intake & Output: Intake & Output 10/28/16 10/29/16 10/29/16 18:59 06:59 18:59 Weight 200 lb 215 lb Other: Voiding Method Indwelling Catheter Vital Signs: Vital Signs - 24 hr 10/28/16 10/28/16 10/28/16 14:04 15:31 16:29 Temperature Pulse Rate 69 84 79 Respiratory 18 18 18 Rate Blood Pressure 141/69 138/65 135/68 O2 Sat by Pulse 96 96 96 Oximetry 10/28/16 10/28/16 10/29/16 17:24 18:53 00:30 Temperature 99.5 F Pulse Rate 75 71 70 Respiratory 18 18 18 Rate Blood Pressure 133/64 131/61 132/72 O2 Sat by Pulse 96 96 98 Oximetry 10/29/16 10/29/16 10/29/16 03:28 04:01 05:55 Temperature 99.5 F Pulse Rate 73 74 73 Respiratory 18 20 Rate Blood Pressure 140/67 119/51 L O2 Sat by Pulse 97 Oximetry 10/29/16 10/29/16 10/29/16 06:00 10:09 11:52 Temperature 99.5 F 98.3 F Pulse Rate 75 73 Respiratory 20 20 Rate Blood Pressure 119/51 L 148/70 119/71 O2 Sat by Pulse 96 Oximetry
[2016-10-30] MEDS: Albuterol-Ipratrop 3 mg / 0.5 (3 ml) UD IH SCH ×4 (01:33→19:45)
[2016-10-30] MEDS: Aztreonam 1 Gm in NS 100mL 100 ML IVPB SCH ×3 (05:29→21:09)
[2016-10-30] MEDS: Sodium Chloride 0.45% 1,000 ML IV SCH ×2 (05:29→14:46)
[2016-10-30] MEDS: Pantoprazole 40 mg EC Tab PO SCH (05:30)
[2016-10-30] MEDS: Insulin Reg-HIGH-Coverage SC SCH ×5 (08:03→22:12)
[2016-10-30 08:24] LABS: ADD MANUAL DIFF? NO
[2016-10-30 08:31] LABS: BASO # 0.06 K/mm3 (0.0-2.0); BASO % 0.4 % (0.0-3.0); EOS # 0.4 (0.0-0.7); EOS % 2.7 % (1.5-5.0); GRAN # 11.37 (1.4-6.5); GRAN % 72.6 % (50.0-68.0); HEMATOCRIT 37.1 % (42.0-52.0); LYMPH # 1.8 (1.2-3.4); LYMPH % 11.8 % (22.0-35.0); MEAN CELL VOLUME 90.3 fL (80.0-105.0); MEAN CORPUSCULAR HEMOGLOBIN 31.6 pg (25.0-35.0); MEAN PLATELET VOLUME 13.2 fl (7.0-11.0); MONO % 12.5 % (1.0-6.0); PLATELET COUNT 163 10^3/uL (120.0-450.0); WHITE BLOOD COUNT 15.7 10^3/ul (4.5-11.0)
[2016-10-30 08:41] LABS: ALB/GLOB RATIO 1.1 (1.1-1.8); POTASSIUM 4.4 mmol/L (3.6-5.0); TOTAL PROTEIN 5.8 g/dL (5.8-8.3)
[2016-10-30] MEDS: Linezolid 600 mg in D5W 300 ml 600 MG/300 ML BAG IVPB SCH ×2 (09:52→22:14)
--- NOTE | 2016-10-30 14:39 | PN ---
DATE: 10/30/2016 SUBJECTIVE: The patient is a 71-year-old, seen and examined sitting in chair. Seems to be more comf ortable. Gonzalez's catheter was removed. Seemed to be urinating okay. No hematuria. Cough is gettin g better. PHYSICAL EXAMINATION: VITAL SIGNS: The patient is afebrile, pulse 62, respirations 20, blood pressure 144/70. LUNGS: Bilateral few expiratory rhonchi. Right lower base has a few soft crackles. HEART: S1, S2 audible. ABDOMEN: Soft, nontender, no rebound, no guarding. NEUROLOGIC: The patient is awake and alert, communicative, ambulatory. LABORATORY EXAMINATION: WBC is 15.7, hemoglobin 13, hematocrit 37, platelet 163. Chemistry: Sodium 140, potassium 4.4, chloride 111, CO2 20, BUN 39, creatinine 3.5, blood sugar of 95. AST 92, ALT 13 4, alk phos is 177. ASSESSMENT AND PLAN: 1. Right lower lobe pneumonia. 2. Worsening renal function. 3. History of recurrent urethritis and urinary tract infection. 4. Abnormal liver function tests, probably secondary to antibiotics. PLAN: Will continue on IV fluids. Get Dr. Quiñones for evaluation. Continue on Azactam, doxy and Zyvo x. The patient is anxious to go home. He states he is feeling better. He has to take care of his s ick daughter who has Himanshu disease and severe tremors. I explained to him that his worsening kidney function has to be addressed and taken care of while he is in the hospital. Will follow up his CBC and CMP in the a.m. Diallo West MD cc: [phone] TT: 10/30/2016 14:39:13 Confirmation # [id number] Dictation # [id number] mn
[2016-10-30 15:00] LABS: URINE BILIRUBIN NEGATIVE (NEGATIVE); URINE BLOOD SMALL (NEGATIVE); URINE GLUCOSE (UA) 250 mg/dL (NEGATIVE); URINE KETONE NEGATIVE (NEGATIVE); URINE LEUKOCYTE ESTERASE LARGE Leu/uL (NEGATIVE); URINE PROTEIN 30 mg/dL (<30 mg/dL); URINE UROBILINOGEN 0.2 E.U./dL (<1 E.U./dL)
[2016-10-30 15:06] LABS: URINE APPEARANCE TURBID (CLEAR); URINE COLOR YELLOW (YELLOW)
[2016-10-30 15:08] LABS: URINE BACTERIA FEW (NEG); URINE RBC 0 - 2 /hpf (0-2); URINE WBC TNTC /hpf (0-6)
--- NOTE | 2016-10-30 17:35 | CON ---
DATE: 10/30/2016 REASON FOR CONSULTATION: Acute kidney injury. HISTORY OF PRESENTING ILLNESS: A 71-year-old male, previously unknown to me, was initially admitted on 10/27 with complaints of generalized weakness, malaise. Also, some cough and congestion. In the Emergency Room, he was found to have a temperature of 102, he was tachycardic. Blood pressure was so mewhat low. He was found to have a right lower lobe pneumonia. He was also found to have WBC count of 32,000 with 5% bands. The patient subsequently found to have E. coli urinary tract infection. He does have a history of recurrent UTIs because of urethral reconstruction. He was started on antibiotics for right lower lobe pneumonia and E. coli UTI. He has been receiving doxycycline 100 q. 12, Zyvox 600 q. 12 and Azactam 1 gram q. 8. His creatinine at the time of admiss ion was 1.5 and subsequently it j luis to 2.0 on 10/28, 2.8 yesterday and 3.5 today. Consultation is r equested for acute kidney injury. The patient had a Gonzalez placed. The Gonzalez was removed yesterday. PAST MEDICAL AND SURGICAL HISTORY: NIDDM, hypertension, chronic kidney disease stage III, baseline c reatinine around 1.5, bilateral kidney stones, urethral reconstruction, hyperlipidemia. FAMILY HISTORY: Noncontributory. SOCIAL HISTORY: Smoker, quit many years ago, no alcohol, no IV drug abuse. ALLERGIES: PENICILLIN. MEDICATIONS AT HOME: Had been Janumet 50/500, simvastatin, amlodipine, Percocet for back pain. CURRENT MEDICATIONS: Include aspirin, Azactam, doxycycline, DuoNeb, insulin, amlodipine 10, Protonix 40, half-normal saline at 100, Tylenol, Zofran and Zyvox. REVIEW OF SYSTEMS: The patient reports very dark and foul smelling stool. He reports poor appetite. He denies any cough, shortness of breath at present. He denies any abdominal pain. He denies any chest tightness. All other systems are reviewed and unremarkable. PHYSICAL EXAMINATION: GENERAL: Elderly male sitting in bed. VITAL SIGNS: Blood pressure 141/70, heart rate 62, respiratory rate 20, temperature 98.2. HEENT: Normocephalic, atraumatic, positive pallor. NECK: Supple, no JVD. LUNGS: Bilateral equal air entry, bilateral equal expansion, no rales appreciated. CARDIAC: S1, S2, regular rate and rhythm, no murmur, no rub. ABDOMEN: Obese, distended, soft, nontender, bowel sounds present. EXTREMITIES: Trace lower extremity edema. INTAKE AND OUTPUT: 2700/225. LABORATORY DATA: Sodium 140, potassium 4.4, chloride 111, CO2 20, BUN 39, creatinine 3.5, glucose 95 , calcium 8.0, total bilirubin 1.0, AST 92, ALT 134, albumin 3.1, corrected calcium is 8.7. WBC 15.7 , hemoglobin 13, hematocrit 37, platelets 163. Urine culture, E. coli. Blood culture, no growth so far. CT scan of the abdomen without contrast showed bilateral kidney stones, no hydronephrosis, larg e right lower lobe infiltrate. ASSESSMENT AND PLAN: A 71-year-old male with non-insulin dependent diabetes mellitus, hypertension, chronic kidney disease stage III, baseline creatinine around 1.5, admitted with fever, leukocytosis, right lower lobe pneumonia, Escherichia coli urinary tract infection. The patient receiving antibiot ics. He is on doxycycline, Zyvox and Azactam. The patient has developed acute kidney injury. His creatinine has progressively risen from 1.5 to 3.5 over the last 72 hours. Etiology of his acute kid malathi injury is unclear at this time. The patient is not on any GRAZYNA inhibitor or ARB. He was on metformin at home, but he has not received metformin in the hospital. There is no evidence eosinophilia. The patient does not appear to be on any kind of nephrotoxic agen ts. The patient reports dark stool. Could he be having a GI bleed that may be responsible for his acute kidney injury? His hemoglobin is stable though. PLAN: 1. Recommend checking stool occults x 3. 2. Recommend checking bladder scan because patient has a history of urinary retention and his Gonzalez was removed yesterday. 3. Check urine sodium and urine creatinine to calculate FENa. 4. Continue half-normal saline at 100. 5. Repeat urinalysis and urine culture. Thank you for the courtesy of this consultation. We will make further recommendations when workup is available. Suspect this is ATN in the setting of sepsis, leukocytosis, relative hypotension. Denise Quiñones MD cc: [phone] TT: 10/30/2016 17:34:49 Confirmation # [id number] Dictation # [id number] mn
--- NOTE | 2016-10-30 21:14 | CP.PCM.PN ---
Subjective - Date & Time of Evaluation Date of Evaluation: 10/30/16 Time of Evaluation: 10:40 - Subjective Subjective: Comfortable, breathing better, a little less cough, no fevers overnight. Objective - Vital Signs/Intake and Output Vital Signs (last 24 hours): Temp Pulse Resp BP Pulse Ox 98.2 F 62 20 144/70 97 10/30/16 08:18 10/30/16 08:18 10/30/16 08:18 10/30/16 09:53 10/30/16 08:18 Intake and Output: 10/30/16 10/30/16 06:59 18:59 Intake Total 2700 Output Total 225 Balance 2475 - Medications Medications: Current Medications Acetaminophen (Tylenol 325mg Tab) 650 mg PO Q6H PRN PRN Reason: Fever >100.4 F Last Admin: 10/29/16 23:51 Dose: 650 mg Albuterol/Ipratropium (Duoneb 3 Mg/0.5 Mg (3 Ml) Ud) 3 ml IH Q2H PRN PRN Reason: Shortness of Breath Last Admin: 10/28/16 14:33 Dose: 3 ml Albuterol/Ipratropium (Duoneb 3 Mg/0.5 Mg (3 Ml) Ud) 3 ml IH [id number] [facility] Last Admin: 10/30/16 07:54 Dose: Not Given Amlodipine Besylate (Norvasc) 10 mg PO DAILY [facility] Last Admin: 10/30/16 09:53 Dose: 10 mg Aspirin (Aspirin Chewable) 81 mg PO DAILY [facility] Last Admin: 10/30/16 09:52 Dose: 81 mg Doxycycline Hyclate 100 mg/ (Sodium Chloride) 100 mls @ 100 mls/hr IVPB Q12 PETROS PRN Reason: Protocol Last Admin: 10/29/16 22:07 Dose: 100 mls/hr Sodium Chloride (Sodium Chloride 0.45%) 1,000 mls @ 100 mls/hr IV .Q10H PETROS Last Admin: 10/30/16 05:29 Dose: 100 mls/hr Aztreonam (Azactam 1 Gm) 100 mls @ 100 mls/hr IVPB Q8 PETROS PRN Reason: Protocol Stop: 11/04/16 10:01 Last Admin: 10/30/16 05:29 Dose: 100 mls/hr Linezolid (Zyvox 600mg/300ml D5w) 600 mg in 300 mls @ 200 mls/hr IVPB Q12 PETROS PRN Reason: Protocol Stop: 11/04/16 10:01 Last Admin: 10/30/16 09:52 Dose: 200 mls/hr Insulin Human Regular (Humulin R High) 0 units SC ACHS PETROS PRN Reason: Protocol Last Admin: 10/30/16 08:03 Dose: Not Given Ondansetron HCl (Zofran Inj) 4 mg IVP Q6H PRN PRN Reason: Nausea/Vomiting Pantoprazole Sodium (Protonix Ec Tab) 40 mg PO 0630 [facility] Last Admin: 10/30/16 05:30 Dose: 40 mg - Labs Labs: 10/30/16 08:00 10/30/16 08:00 PT 13.2 Seconds (9.9-11.8) H 10/27/16 20:12 INR 1.22 (0.93-1.08) H 10/27/16 20:12 APTT 34.8 Seconds (23.7-30.8) H 10/27/16 20:12 - Constitutional Appears: Non-toxic, No Acute Distress - Head Exam Head Exam: NORMAL INSPECTION - ENT Exam ENT Exam: Mucous Membranes Moist - Neck Exam Neck Exam: absent: Lymphadenopathy, Meningismus - Respiratory Exam Respiratory Exam: Decreased Breath Sounds - Cardiovascular Exam Cardiovascular Exam: +S1, +S2 - GI/Abdominal Exam GI & Abdominal Exam: Soft. absent: Tenderness Assessment and Plan - Assessment and Plan (Free Text) Plan: Assessment Consider severe sepsis with acute renal failure due to right lower lobe pneumonia, healthcare-associated since he has been recently on antibiotics, with possible gram positive cocci and/or gram negative bacilli and/or atypical organisms nephrolithiasis HTN DM history of skin infection history of urinary retention Plan continue Zyvox, Azactam and Doxycycline day 3 pending final blood, sputum cx results; reviewed CT scan of the abdomen and pelvis which shows the right lower lobe infiltration with air bronchograms; complete 4-7 days of therapy discussed with Dr. West will continue to monitor clinical response
[2016-10-31] MEDS: Albuterol-Ipratrop 3 mg / 0.5 (3 ml) UD IH SCH ×4 (01:06→20:59)
[2016-10-31] MEDS: Aztreonam 1 Gm in NS 100mL 100 ML IVPB SCH ×3 (05:12→23:13)
[2016-10-31] MEDS: Pantoprazole 40 mg EC Tab PO SCH (05:31)
[2016-10-31 07:49] LABS: ADD MANUAL DIFF? NO
[2016-10-31 07:51] LABS: BASO # 0.06 K/mm3 (0.0-2.0); BASO % 0.4 % (0.0-3.0); EOS # 0.1 (0.0-0.7); EOS % 0.6 % (1.5-5.0); GRAN % 75.9 % (50.0-68.0); HEMATOCRIT 32.4 % (42.0-52.0); LYMPH # 1.8 (1.2-3.4); LYMPH % 10.8 % (22.0-35.0); MEAN CELL VOLUME 87.6 fL (80.0-105.0); MEAN CORPUSCULAR HEMOGLOBIN 31.4 pg (25.0-35.0); MEAN CORPUSCULAR HGB CONC 35.8 g/dl (31.0-37.0); MEAN PLATELET VOLUME 12.5 fl (7.0-11.0); MONO % 12.3 % (1.0-6.0); PLATELET COUNT 164 10^3/uL (120.0-450.0); RED CELL DISTRIBUTION WIDTH 13.6 % (11.5-14.5); WHITE BLOOD COUNT 16.3 10^3/ul (4.5-11.0)
[2016-10-31 08:06] LABS: ALB/GLOB RATIO 0.9 (1.1-1.8); BILIRUBIN,TOTAL 0.7 mg/dL (0.2-1.3); CALCIUM 7.6 mg/dL (8.4-10.5); POTASSIUM 3.7 mmol/L (3.6-5.0); TOTAL PROTEIN 5.2 g/dL (5.8-8.3)
[2016-10-31] MEDS: Insulin Reg-HIGH-Coverage SC SCH ×4 (08:10→23:16)
[2016-10-31] MEDS: Linezolid 600 mg in D5W 300 ml 600 MG/300 ML BAG IVPB SCH ×2 (09:29→23:16)
--- NOTE | 2016-10-31 09:49 | PN ---
DATE: 10/29/2016 See the previously dictated note. The patient is resting comfortably. He looks remarkably better. He is now on the floor. He has had a night's sleep. He is currently resting comfortably. PAST MEDICAL AND SURGICAL HISTORY: No other changes. REVIEW OF SYSTEMS: As listed. No changes. Everything is basically essentially unchanged. LABORATORY DATA: Significantly, the white count is down to about 18,000 from 34,000. DIAGNOSIS: Sepsis, now resolving. The issue is still the patient should have a Gonzalez, a cystoscope via the urethra, and evaluated more fully. Kyree Carmona MD cc: [phone] TT: 10/31/2016 09:48:58 Confirmation # [id number] Dictation # [id number] mn
--- NOTE | 2016-10-31 12:09 | PN ---
DATE: 10/31/2016 SUBJECTIVE: The patient is seen sitting in chair. He is awake. He is alert. He is comfortable. Keshia gaitan wants to go home. PHYSICAL EXAMINATION: GENERAL: Elderly male sitting in chair. VITAL SIGNS: Blood pressure 154/74, heart rate 75, respiratory rate 20, temperature 99, T-max is 99. HEENT: Normocephalic, atraumatic. NECK: Supple, no JVD. LUNGS: Bilateral equal air entry, bilateral equal air expansion. CARDIAC: S1, S2, regular rate and rhythm, no murmur, no rub. ABDOMEN: Obese, distended, soft, nontender, bowel sounds present. EXTREMITIES: No lower extremity edema. INTAKE AND OUTPUT: 2100/1175. LABORATORY DATA: WBC 16.3, hemoglobin 11.6, hematocrit 32, platelets 164. Sodium 136, potassium 3.7 , chloride 111, CO2 16, BUN 38, creatinine 3.4, glucose 183, calcium 7.6, albumin 2.5, corrected calc ium is 8.6. Urine sodium 61, urine creatinine 54. Urinalysis: Yellow, turbid 6.0, specific gravity 1.010, protein 30, glucose 250, blood small, leukocyte esterase large, WBCs too numerous to count. ASSESSMENT: 1. Acute kidney injury superimposed on chronic kidney disease stage III, creatinine seems to be plat eauing. 2. Escherichia coli urinary tract infection. 3. Right lower lobe pneumonia. 4. Status post sepsis, hypotension, tachycardia, acute kidney injury. 5. Non-insulin dependent diabetes mellitus. 6. Hypertension. PLAN: 1. Workup is consistent with ATN, creatinine seems to be plateauing, may take up to 7 days for recov alissa process to start. 2. Follow up repeat urine culture. 3. Continue antibiotics. 4. Discussed with patient, will hold discharge today. 5. Avoid nephrotoxins. Denise Quiñones MD cc: [phone] TT: 10/31/2016 12:08:02 Confirmation # [id number] Dictation # [id number] vale
--- NOTE | 2016-10-31 12:16 | PN ---
DATE: 10/31/2016 SUBJECTIVE: The patient is a 71-year-old, seen and examined, doing well, has scanty cough. Eating a nd tolerating. No nausea, vomiting. No diarrhea. No fever. No chills. PHYSICAL EXAMINATION: VITAL SIGNS: He is afebrile, pulse 75, respirations 20, blood pressure 154/74. LUNGS: Bilateral good airflow, few soft crackles at right base. HEART: S1, S2 audible. ABDOMEN: Soft, nontender, obese. No hepatosplenomegaly. NEUROLOGIC: The patient is awake and alert, communicative, ambulatory. EXTREMITIES: Bilateral leg, no edema. Has varicose veins. LABORATORY: WBC is 16.3, INR 11.6, hematocrit 32.4, platelet 164. Chemistry: Sodium 136, potassium 3.7, chloride 111, CO2 of 16, BUN 38, creatinine 3.4, blood sugar 183. Urine culture positive for E . coli. ASSESSMENT: 1. Right lower lobe pneumonia. 2. Escherichia coli urinary tract infection. 3. Probably acute tubular necrosis secondary to sepsis. 4. Non-insulin dependent diabetes. 5. Hypertension. PLAN: Currently, the patient is on IV fluid. We will continue that. I will continue him on Azactam and doxycycline and Zyvox and will follow up CBC and CMP in a.m. and if he is trending down on his B UN and creatinine will make discharge plan in a.m. Diallo West MD cc: [phone] TT: 10/31/2016 12:15:42 Confirmation # [id number] Dictation # [id number] jn
--- NOTE | 2016-10-31 12:28 | CON ---
DATE: 10/28/2016 REASON FOR CONSULTATION: Voiding dysfunction, urinary retention and urosepsis or sepsis which is to be defined. HISTORY OF PRESENT ILLNESS: The patient is a very pleasant gentleman. I know him very well. I also see his daughter. He is 71 years old. He has been my patient for quite some time, but prior to anatoliy ventura my patient he had been a urology patient going way back into the 1970s where he was actually treat ed at the [facility] [place] in [place], and actually even within the last 10 years I had sent him ming spicer there. He had had a urethral stricture and whatever repairs were done. Subsequently he had hair. At that time it was not with the bladder mucosa or buccal mucosa. I believe they subsequently have seen the patient. I have cystoscoped the patient myself and found h air. Hair was in the urethra. Of late, there has not been any recent cystoscopes. He actually refuses th em. I have strongly recommended them. Just from a practical standpoint, he gets urethral stricture disease/stone disease and then he gets v alissa sick. Right now, he is admitted to the hospital with a white count of 34,000. Looks like a Gonzalez catheter is in place by the CAT scan (see below) because I still recommend cystoscopic evaluation; not now whi gerardo he is septic unless that will solve the sepsis, but it seems like a Gonzalez catheter in place, but I am very concerned for him for having stone disease. PAST MEDICAL AND SURGICAL HISTORY: Otherwise, unremarkable other than listed on the chart. He has m ultiple issues. PHYSICAL EXAMINATION: GENERAL: Well-nourished male. He is currently resting, fairly tired in appearance. He is in the Em ergency Room (been here since yesterday). ABDOMEN: Relatively soft. No rebound, guarding, tenderness. There are no signs of an acute abdomen . No real CVA tenderness. The abdomen does seem grossly distended. GENITALIA: Normal male phallus. DIAGNOSES: History of urethral stricture disease, with multiple complications including stone diseas e within the urethra and urethral stricture disease recurrence. But overall, from his repair that goes back maybe 45 years or more, he is doing very well. About 10- 15 years ago or so, I had sent the patient back to the [facility]. I spoke to a female urologist a t the time (I do not remember the name this minute), and we had worked as a strategy and plan. The p athai anyway does not really want to travel to often back to [place], but we have been maintai garima him with different options. We had discussed CIC, we discussed treatment of the strictures. We discussed ____, and use of antibiotics, etc. He is now in the hospital with sepsis. The white count is noted at 34,000. Rectal exam was deferred . But there are multiple possibilities for this kind of illness. The patient is not on any steroid medications. PLAN: From urology standpoint is antibiotics for now, leave the Gonzalez for now and then make further recommendations and plans. We will follow along. Again, I will encourage the patient to have a cystoscopic evaluation if he will allow such. Kyree Carmona MD cc: [phone] TT: 10/31/2016 12:27:35 Confirmation # [id number] Dictation # [id number] demetrio
--- NOTE | 2016-10-31 16:45 | PN ---
DATE: 10/31/2016 HISTORY OF PRESENT ILLNESS: The patient is in bed in no acute distress, nontoxic. Was seen earlier this morning. PHYSICAL EXAMINATION: VITAL SIGNS: Temperature is 99, blood pressure is 150/70, respiratory rate of 16. HEENT: Unremarkable. NECK: Supple. LUNGS: Have decreased breath sounds. HEART: Normal S1, S2. ABDOMEN: Soft, nontender. LABORATORY DATA: Reveals a white count of 16,000, hemoglobin of 11, platelets of 164. BUN of 38, cr eatinine of 3.4. Influenza serology A and B are positive. Microbiology reveals E. coli in the urine . Blood cultures have no growth. MEDICATIONS: The patient is on IV Azactam, IV doxycycline, IV Zyvox. ASSESSMENT AND PLAN: A 71-year-old male with severe sepsis, acute renal failure due to right lower l obe pneumonia, healthcare-associated recently, and on antibiotics, possible gram-positive cocci, poss ible gram-negative eric pneumonia, on Zyvox, Azactam doxycycline, day #4, pending workup result. Woul d complete 4-7 days of antibiotics. The patient's influenza serology is positive. Will follow with you. Kenrick Harkins MD cc: [id number] TT: 10/31/2016 16:44:31 Confirmation # [id number] Dictation # [id number] dn
[2016-10-31] MEDS: Sodium Chloride 0.45% 1,000 ML IV SCH (23:15)
[2016-11-01] MEDS: Albuterol-Ipratrop 3 mg / 0.5 (3 ml) UD IH SCH ×3 (01:43→13:28)
[2016-11-01] MEDS: Aztreonam 1 Gm in NS 100mL 100 ML IVPB SCH (05:44)
[2016-11-01] MEDS: Pantoprazole 40 mg EC Tab PO SCH (05:44)
[2016-11-01] MEDS: Sodium Chloride 0.45% 1,000 ML IV SCH (05:45)
[2016-11-01 07:49] LABS: ADD MANUAL DIFF? NO
[2016-11-01 07:54] LABS: BASO # 0.08 K/mm3 (0.0-2.0); BASO % 0.5 % (0.0-3.0); EOS # 0.4 (0.0-0.7); EOS % 2.4 % (1.5-5.0); GRAN # 11.15 (1.4-6.5); GRAN % 71.5 % (50.0-68.0); HEMATOCRIT 32.6 % (42.0-52.0); LYMPH # 2.2 (1.2-3.4); LYMPH % 14.4 % (22.0-35.0); MEAN CELL VOLUME 87.9 fL (80.0-105.0); MEAN CORPUSCULAR HEMOGLOBIN 30.7 pg (25.0-35.0); MEAN PLATELET VOLUME 12.1 fl (7.0-11.0); MONO # 1.8 (0.1-0.6); MONO % 11.2 % (1.0-6.0); PLATELET COUNT 182 10^3/uL (120.0-450.0); RED CELL DISTRIBUTION WIDTH 13.9 % (11.5-14.5); WHITE BLOOD COUNT 15.6 10^3/ul (4.5-11.0)
[2016-11-01] MEDS: Insulin Reg-HIGH-Coverage SC SCH (08:02)
[2016-11-01 08:07] LABS: BILIRUBIN,TOTAL 0.6 mg/dL (0.2-1.3); CALCIUM 7.7 mg/dL (8.4-10.5); POTASSIUM 3.8 mmol/L (3.6-5.0); TOTAL PROTEIN 5.2 g/dL (5.8-8.3)
[2016-11-01 09:07] VITALS: BP 144/76
[2016-11-01 10:35] VITALS: PULSE 65; RESP 18; TEMP 98.8; O2SAT 95
--- NOTE | 2016-11-01 11:38 | PN ---
DATE: 11/01/2016 SUBJECTIVE: The patient is seen lying in bed. He is awake. He is alert. He is comfortable. He de nies any pain. He denies any shortness of breath. PHYSICAL EXAMINATION: GENERAL: Elderly male lying in bed. VITAL SIGNS: Blood pressure 144/76, heart rate 65, respiratory rate 18, temperature 98.8. HEENT: Normocephalic, atraumatic. NECK: Supple, no JVD. LUNGS: Bilateral equal air entry, no rales. CARDIAC: S1, S2, regular rate and rhythm, no murmur, no rub. ABDOMEN: Obese, distended, soft, nontender, bowel sounds present. EXTREMITIES: Trace lower extremity edema. INTAKE AND OUTPUT: Not charted. LABORATORY DATA: WBC 15.6, hemoglobin 11.4, hematocrit 33, platelets 182. Sodium 137, potassium 3.8 , chloride 111, CO2 of 18, BUN 36, creatinine 3.3, glucose 156, calcium 7.7, albumin 2.6, corrected c alcium 1.8.7. CURRENT MEDICATIONS: Aspirin, Azactam, doxycycline, DuoNeb, insulin, amlodipine 10 mg daily, Protoni x, half normal saline at 100, Tylenol, Zofran, Zyvox. ASSESSMENT: 1. Acute kidney injury superimposed on chronic kidney disease stage III, creatinine slowly improving . 2. Acute tubular necrosis secondary to sepsis. 3. Isq-plqevoc-jvrvhfjrj diabetes mellitus. 4. Hypertension. 5. Escherichia coli urinary tract infection. 6. Right lower lobe pneumonia. 7. Influenza. PLAN: 1. Okay to discontinue IV fluids. 2. Continue to hold metformin. 3. No NSAIDs. 4. No ARB or GRAZYNA inhibitor at the time being. 5. Discontinue IV fluids. 6. No objection to discharge, but must have chemistry done next week and follow up in the office in 2 weeks. Case discussed with nurse and patient at length. Denise Quiñones MD cc: [id number] TT: 11/01/2016 11:38:04 Confirmation # [id number] Dictation # [id number]
--- NOTE | 2016-11-01 15:44 | DS ---
The patient is 71-year-old, seen and examined, lying in bed. He seems to be comfortable. The patien danyelle was admitted with mild confusion, cough, congestion, fever and chills going on for almost a week. The patient's workup showed that he has Escherichia coli urinary tract infection that is resistant to most of antibiotics and he has right lower lobe infiltrate, has been on antibiotics with good respon se, so doing well, being discharged today. The patient received doxycycline, Azactam and Zyvox durin g his hospital stay. PHYSICAL EXAMINATION: VITAL SIGNS: He is afebrile, pulse 65, respirations 18, blood pressure 144/76. LUNGS: Bilateral fair airflow, no rhonchi or crackle. HEART: S1, S2 audible. ABDOMEN: Soft, nontender, no rebound, no guarding. NEUROLOGIC: The patient is awake and alert, able to communicate, ambulatory. LABORATORY EXAM: WBC is 15.6, hemoglobin 11.4, hematocrit 32.6, platelet of 182. Chemistry: Sodium 137, potassium 3.8, chloride 111, CO2 of 18, BUN 36, creatinine 3.3, blood sugar 183. Hemoglobin A1 c 7.7. Drug screen positive for opiates and marijuana. PLAN: This patient is clinically stable, will be discharged home on Zyvox 600 twice a day for 3 more days, and we will give doxycycline 100 twice a day for a week and he will follow up. During the [facility] stay, the patient also was found to have renal insufficiency and Dr. Quiñones evaluated the patien danyelle, diagnosis was acute tubular necrosis. He remained on IV fluid and his creatinine seems to be tren ding, so we will send him home and follow up in the office in a week to follow up his blood work and he will finish his antibiotic and follow up the patient in office as outpatient. Dilalo West MD cc: [phone] TT: 11/01/2016 14:32:10 ln
--- NOTE | 2016-11-01 16:47 | CP.PCM.PN ---
Subjective - Date & Time of Evaluation Date of Evaluation: 11/01/16 Time of Evaluation: 11:05 - Subjective Subjective: Comfortable, afebrile, not in distress. Objective - Vital Signs/Intake and Output Vital Signs (last 24 hours): Temp Pulse Resp BP Pulse Ox 98.8 F 65 18 144/76 95 11/01/16 06:00 11/01/16 06:00 11/01/16 06:00 11/01/16 09:01 11/01/16 06:00 Intake and Output: 11/01/16 11/01/16 06:59 18:59 Intake Total 300 Balance 300 - Labs Labs: 11/01/16 07:00 11/01/16 07:00 PT 13.2 Seconds (9.9-11.8) H 10/27/16 20:12 INR 1.22 (0.93-1.08) H 10/27/16 20:12 APTT 34.8 Seconds (23.7-30.8) H 10/27/16 20:12 - Constitutional Appears: Non-toxic, No Acute Distress - Head Exam Head Exam: NORMAL INSPECTION - ENT Exam ENT Exam: Mucous Membranes Moist - Neck Exam Neck Exam: absent: Lymphadenopathy, Meningismus - Respiratory Exam Respiratory Exam: Decreased Breath Sounds - Cardiovascular Exam Cardiovascular Exam: +S1, +S2 - GI/Abdominal Exam GI & Abdominal Exam: Soft. absent: Tenderness Assessment and Plan - Assessment and Plan (Free Text) Plan: Assessment severe sepsis with acute renal failure due to right lower lobe pneumonia, healthcare-associated since he has been recently on antibiotics, with possible gram positive cocci and/or gram negative bacilli and/or atypical organisms nephrolithiasis HTN DM history of skin infection history of urinary retention currently with E. coli in the urine Plan on Zyvox, Azactam and Doxycycline day 5 - as discussed with Dr. West, patient can be switched to PO doxycycline, Zyvox and Bactrim to complete another 3-5 day course - patient will follow up as outpatient with Dr. West
== END 2016-11-01 15:39 | disposition home or self-care (01) | DRG 871 ==
LOC: ED 19:38 → ERH 23:08 → 2RSO 10-29 04:11 → 3RNO 10-29 16:23
PROVIDERS: ADMIT Internal Medicine; ATTEND Internal Medicine
DX: A41.9 Sepsis, unspecified organism (principal); J18.1 Lobar pneumonia, unspecified organism; N17.0 Acute kidney failure with tubular necrosis; N39.0 Urinary tract infection, site not specified; J44.0 Chronic obstructive pulmonary disease with (acute) lower respiratory infection; N18.3 Chronic kidney disease, stage 3 (moderate); E11.22 Type 2 diabetes mellitus with diabetic chronic kidney disease; R65.20 Severe sepsis without septic shock; B96.20 Unspecified Escherichia coli [E. coli] as the cause of diseases classified elsewhere; I12.9 Hypertensive chronic kidney disease with stage 1 through stage 4 chronic kidney disease, or unspecified chronic kidney disease; N28.1 Cyst of kidney, acquired; K59.00 Constipation, unspecified; E78.5 Hyperlipidemia, unspecified; N35.9 Urethral stricture, unspecified; N20.0 Calculus of kidney; F17.200 Nicotine dependence, unspecified, uncomplicated; J11.1 Influenza due to unidentified influenza virus with other respiratory manifestations; Z79.84 Long term (current) use of oral hypoglycemic drugs; Z88.0 Allergy status to penicillin